=== PATIENT | male | born 1955 | race Caucasian/White ===

== ENCOUNTER 2017-04-13 15:36 | Emergency (ER) | END 2017-04-13 21:13 | disposition home or self-care (01) ==

== ENCOUNTER 2018-01-03 06:36 | Inpatient (IN) | END 2018-01-07 13:50 | disposition home IV services (08) | DRG 289 ==

== ENCOUNTER 2018-02-23 08:00 | Inpatient (IN) | END 2018-03-03 19:25 | disposition home health service (06) | DRG 314 ==